=== PATIENT | female | born 1985 | race Two or more races ===

== ENCOUNTER 2022-05-04 04:35 | Day surgery (SDC) | payer BC ==
[2022-04-28 13:33] VITALS: BMI 33.5
[2022-05-04] MEDS ORDERED: TRIAMCINOLONE ACET 40MG/1ML VIAL ONE (10:26)
[2022-05-04] MEDS ORDERED: BUPIVACAINE HCL/PF 0.5% (5MG/ML) 10 ML VIAL ONE (10:27)
[2022-05-04] MEDS ORDERED: LIDOCAINE HCL/PF 1% SDV 5ML VIAL ONE (10:27)
[2022-05-04 13:32] VITALS: RESP 20
[2022-05-04] MEDS ORDERED: BUPIVACAINE HCL/PF 0.5% (5MG/ML) 10 ML VIAL IJ ONE ×2 (13:39→13:50)
[2022-05-04] MEDS ORDERED: TRIAMCINOLONE ACETONIDE 40 MG/ML 10 ML VIAL IJ ONE ×2 (13:40→13:50)
[2022-05-04] MEDS ORDERED: LIDOCAINE HCL 1% PRESERVATIVE FREE - 30ML VIAL IJ ONE ×2 (13:40→13:50)
[2022-05-04] MEDS ORDERED: IOHEXOL 180 MG/1 ML ML IJ ONE ×2 (13:41→13:50)
[2022-05-04 14:34] VITALS: BP 135/72; PULSE 82; TEMP 97.9
== END 2022-05-04 14:33 | disposition home or self-care (01) ==
LOC: JASU-SURG 04:35
PROVIDERS: ATTEND Pain Medicine Pain Medicine
PROC: 3E0U3BZ Introduction of Anesthetic Agent into Joints, Percutaneous Approach (ICD-10-PCS; 2022-05-04)
PROC: 3E0U33Z Introduction of Anti-inflammatory into Joints, Percutaneous Approach (ICD-10-PCS; principal; 2022-05-04 14:30)
DX: M53.3 Sacrococcygeal disorders, not elsewhere classified (principal)
CPT/HCPCS: 76000-TC-FY; 81025